=== PATIENT | male | born 1960 | race Caucasian/White ===

== ENCOUNTER → 2018-09-15 | Day surgery (SDC) | payer OTHER ==
[~2018-09-15] MED LIST: ASPIR 8181 MG PO; ATORVASTATIN CA20 MG PO; BENICAR HCT 401 EAC1 PO; CITALOPRAM HBR40 MG PO; CYCLOBENZAPRINE10 MG PO; FENTANYL CITRATE/PF 100MCG/2 ML INJ ONE; METOPROLOL SUCC50 MG PO; MIDAZOLAM HCL 2 MG/2 ML VIAL ONE; PROPOFOL IV EMULSION 10 MG/ML 50 ML VIAL ONE
[2018-09-15 14:40] VITALS: BP 146/86
== END | disposition home or self-care (01) ==
LOC: OR 10:16
PROVIDERS: ATTEND Internal Medicine Gastroenterology
DX: Z12.11 Encounter for screening for malignant neoplasm of colon (principal); D12.2 Benign neoplasm of ascending colon; D12.3 Benign neoplasm of transverse colon; K63.89 Other specified diseases of intestine; I10 Essential (primary) hypertension; E78.5 Hyperlipidemia, unspecified; K59.00 Constipation, unspecified; K62.5 Hemorrhage of anus and rectum; K57.30 Diverticulosis of large intestine without perforation or abscess without bleeding; K64.8 Other hemorrhoids; N40.2 Nodular prostate without lower urinary tract symptoms; Z01.810 Encounter for preprocedural cardiovascular examination; Z79.82 Long term (current) use of aspirin; Z68.42 Body mass index [BMI] 45.0-49.9, adult
CPT/HCPCS: 45384; 93005; J2250; 45378